=== PATIENT | female | born 1970 | race Caucasian/White ===

== ENCOUNTER 2016-03-08 15:04 | Outpatient (RCR) | payer BC ==
[~2016-03-08 15:04] MED LIST: ARMOUR THYROID15 MG; CHROMIUM; MACROBID 1100 MG/CAP PO
== END 2016-04-13 14:23 | disposition home or self-care (01) ==
LOC: WSPT 15:04
DX: M54.2 Cervicalgia (principal); R20.8 Other disturbances of skin sensation; G56.82 Other specified mononeuropathies of left upper limb

== ENCOUNTER → 2017-06-20 | Outpatient (CLI) | payer BC | LOC: MC.RAD 14:20 | DX: Z12.31 Encounter for screening mammogram for malignant neoplasm of breast (principal) ==